=== PATIENT | male | born 1955 | race Caucasian/White ===

== ENCOUNTER → 2016-06-15 | Outpatient (CLI) | payer BC ==
[~2016-06-15] MED LIST: ASPI-435 PO; CLON0.5T3 PO; GLC/500 PO; LISI-729 PO; MELATAB2 PO; MELO7.5T5 PO; NIAC500T11 PO; SERT-234 PO; ZNTT/150 PO
[2016-06-15 09:51] LABS: ALT/SGPT 28 U/L (12-78); AST/SGOT 19 U/L (15-37); BLOOD UREA NITROGEN 19 mg/dl (7-18); BUN/CREATININE RATIO 17.4 (10-20); CALCIUM 9.1 mg/dl (8.5-10.1); CARBON DIOXIDE 26 mmol/L (21-32); CHLORIDE 106 mmol/L (98-107); GLUCOSE 148 mg/dl (70-99); POTASSIUM 4.3 mmol/L (3.5-5.1); SODIUM 141 mmol/L (136-145); TRIGLYCERIDES 106 mg/dl (0-150); VERY LOW DENSITY LIPOPROT CALC 21 mg/dl
[2016-06-15 09:55] LABS: ESTIMATED AVERAGE GLUCOSE 120 mg/dl; HA1C FLAG Normal (Normal)
[2016-06-15 09:56] LABS: ALB/GLOB RATIO 1.1 (0.9-2); ALKALINE PHOSPHATASE 65 U/L (45-117); CHOLESTEROL 201 mg/dl (0-200); CHOLESTEROL/HDL RATIO 3.1; HDL CHOLESTEROL 64 mg/dl; LDL CHOLESTEROL CALCULATED 116 mg/dl
== END | disposition home or self-care (01) ==
LOC: C.LAB1850 08:16
PROVIDERS: ATTEND Nurse Practitioner
DX: E11.9 Type 2 diabetes mellitus without complications (principal); Z12.5 Encounter for screening for malignant neoplasm of prostate

== ENCOUNTER → 2017-01-11 | Outpatient (CLI) | payer BC ==
[2017-01-11 10:12] LABS: BASO % 0.5 %; BASO ABS # 0.02 K/uL (0-0.2); COMPLETE YES; EOS % 7.3 %; HEMATOCRIT 41.8 % (42-52); IG% 0.2 %; LYMPH ABS # 1.22 K/uL (1.2-3.4); MEAN CELL VOLUME 89.1 fL (80-100); MEAN CORPUSCULAR HGB CONC 35.9 g/dl (32-36); MEAN PLATELET VOLUME 8.9 fL (7.4-10.4); PLATELET COUNT 148 K/uL (130-400); RED BLOOD COUNT 4.69 M/uL (4.7-6.1); WHITE BLOOD COUNT 4.36 K/uL (4.8-10.8)
[2017-01-11 10:28] LABS: ESTIMATED AVERAGE GLUCOSE 123 mg/dl; HA1C FLAG Normal (Normal)
== END | disposition home or self-care (01) ==
LOC: C.LAB1850 09:10
PROVIDERS: ATTEND Internal Medicine
DX: E11.9 Type 2 diabetes mellitus without complications (principal)

== ENCOUNTER → 2017-02-09 | Day surgery (SDC) | payer BC ==
[2017-01-31 11:35] VITALS: Ht 179.1 cm; Wt 81.8 kg
[~2017-02-09] VITALS: Ht 179.1 cm; Wt 81.8 kg
[~2017-02-09] MED LIST changes: +LIDOCAINE HCL 2% 2 ML VIAL (20MG/ML) ONE; +MIDAZOLAM HCL 1 MG/ML 2ML VIAL ONE; +PROPOFOL IV EMULSION 10 MG/ML 20 ML VIAL IV ONE
--- NOTE | 2017-02-09 08:53 | Endo History and Physical ---
History & Physical Date of Service: Feb 09, 2017. Chief Complaint: Screening Referring Physician: Abarca History of Present Illness 61 yo CM who presents for screening colonoscopy. Past Surgical History Hx Cardiac Surgery: No Hx Internal Defibrillator: No Hx Pacemaker: No Hx Abdominal Surgery: No Hx of Implantable Prosthesis: No Hx Post-Op Nausea and Vomiting: No Hx Cancer Surgery: No Hx Thoracic Surgery: No Hx Orthopedic: No Hx Urinary Tract Surgery: Yes (LITHOTRIPSY, VASECTOMY) Family History None Social History Smoking Status: Never Smoker Hx Substance Use: No Hx Alcohol Use: No Allergies Coded Allergies: Statins (Verified Allergy, Unknown, MUSCLE ACHES, 02/09/17) Current Medications Reported Home Medications Medications Dose Route/Sig Max Daily Dose Days Date Category Glucophage (Metformin Hcl) 500 Mg Tab 500 Mg PO BID 01/31/17 Reported Zoloft (Sertraline HCl) 100 Mg Tab 100 Mg PO BID 01/31/17 Reported Zestril (Lisinopril) 5 Mg Tab 5 Mg PO QAM 01/31/17 Reported Zantac (Ranitidine HCl) 150 Mg Tab 150 Mg PO BID 01/31/17 Reported Mobic (Meloxicam) 7.5 Mg Tab 7.5 Mg PO QAM 01/31/17 Reported Aspirin 81 (Aspirin) 81 Mg Tab 1 Tab PO QPM 01/31/17 Reported Niacin 500 Mg Tab 500 Mg PO QAM 01/31/17 Reported Melatonin Maximum Strengt (Melatonin) 5 Mg Tab 10 Mg PO HS 01/31/17 Reported Klonopin (Clonazepam) 0.5 Mg Tab 0.5 Mg PO DAILY PRN 01/31/17 Reported Vital Signs Weight (Kilograms): 81.82 Height (Feet): 5 Height (Inches): 10.5 Physical Exam General Appearance: WD/WN, no apparent distress Respiratory/Chest: Auscultation: breath sounds normal Cardiovascular: Heart Auscultation: RRR Abdomen: Bowel Sounds: normal Inspection & Palpation: soft, non-distended, no tenderness, guarding & rebound Assessment and Plan Assessment: 61 yo CM who presents for screening colonoscopy. Plan: Proceed with colonoscopy.
[2017-02-09 09:04] VITALS: TEMP 36.6
--- NOTE | 2017-02-09 10:04 | Discharge Instructions ---
Endoscopy Patient Instructions Date / Procedure(s) Performed Feb 09, 2017. Colonoscopy Allergy Information Coded Allergies: Statins (Verified Allergy, Unknown, MUSCLE ACHES, 02/09/17) Discharge Date / Findings Feb 09, 2017. Colon polyp Diverticulosis Internal hemorrhoids Medication Instructions Stopped Medication(s): Metformin last taken on 02/06/17 81mg Aspirin last taken on 02/07/17 OK to resume all medications today as prescribed Reported Home Medications Medications Dose Route/Sig Max Daily Dose Days Date Category Glucophage (Metformin Hcl) 500 Mg Tab 500 Mg PO BID 01/31/17 Reported Zoloft (Sertraline HCl) 100 Mg Tab 100 Mg PO BID 01/31/17 Reported Zestril (Lisinopril) 5 Mg Tab 5 Mg PO QAM 01/31/17 Reported Zantac (Ranitidine HCl) 150 Mg Tab 150 Mg PO BID 01/31/17 Reported Mobic (Meloxicam) 7.5 Mg Tab 7.5 Mg PO QAM 01/31/17 Reported Aspirin 81 (Aspirin) 81 Mg Tab 1 Tab PO QPM 01/31/17 Reported Niacin 500 Mg Tab 500 Mg PO QAM 01/31/17 Reported Melatonin Maximum Strengt (Melatonin) 5 Mg Tab 10 Mg PO HS 01/31/17 Reported Klonopin (Clonazepam) 0.5 Mg Tab 0.5 Mg PO DAILY PRN 01/31/17 Reported Provider Instructions Activity Restrictions - No exercising or heavy lifting for 24 hours. - Do not drink alcohol the day of the procedure. - Do not drive a car or operate machinery until the day after the procedure. - Do not make any important decisions or sign important papers in 24 hours after the procedure. Following Day: - Return to full activity which may include returning to work/school. Diet Start your diet with liquids and light foods (jello, soup, juice, toast). Then eat your usual diet if not nauseated. Treatment For Common After Affects For mild abdominal pain, bloating, or excessive gas: - Rest - Eat lightly - Lie on right side Follow-Up Information Follow-up with Rima as scheduled Anesthesia Information What You Should Know You have had a procedure that required some medicine to reduce anxiety and discomfort. This treatment is called moderate sedation. After receiving the treatment, you may be sleepy, but you will be able to breathe on your own. The effects of the treatment may last for several hours. Follow these instructions along with Activity/Diet recommendations noted above: * Do NOT do anything where dizziness or clumsiness would be dangerous. * Rest quietly at home today, then you can be up and about tomorrow. * Have a responsible person stay with you the rest of today. * You may have had an I.V. today. If so, you may take the dressing off later today. Recommendations Call your doctor if: * Trouble breathing * Continuous vomiting for more than 24 hours * Temperature above 101 degrees * Severe abdominal pain or bloating * Pain not relieved by pain medicine ordered * There is increased drainage or redness from any incision * A large amount of rectal bleeding greater than 2-3 tablespoons. (If you had a polyp/s removed or have hemorrhoids, a small amount of blood - from the rectum is to be expected.) * You have any unanswered questions or concerns. IN THE EVENT OF A SERIOUS EMERGENCY, GO TO THE NEAREST EMERGENCY ROOM Your discharge instructions were prepared by provider Ubaldo Suazo. Patient Instructions Signature Page Toby Bailey Patient (or Guardian) Signature/Date: I have read and understand the instructions given to me by my caregivers. Caregiver/RN/Doctor Signature/Date: The above-named patient and/or guardian has received patient instructions on this date. + Original Patient Signature Page (only) stays with chart. Please make copy for patient.
--- NOTE | 2017-02-09 10:06 | GI REPORT ---
Procedure Date: 02/09/2017 9:27 AM Procedure: Colonoscopy Indications: Screening for colorectal malignant neoplasm Medicines: Monitored Anesthesia Care Complications: No immediate complications. Estimated Blood Loss: Estimated blood loss: none. Procedure: Pre-Anesthesia Assessment: - Prior to the procedure, a History and Physical was performed, and patient medications and allergies were reviewed. The patient's tolerance of previous anesthesia was also reviewed. The risks and benefits of the procedure and the sedation options and risks were discussed with the patient. All questions were answered, and informed consent was obtained. Prior Anticoagulants: The patient has taken aspirin, last dose was 2 days prior to procedure. ASA Grade Assessment: II - A patient with mild systemic disease. After reviewing the risks and benefits, the patient was deemed in satisfactory condition to undergo the procedure. After I obtained informed consent, the scope was passed under direct vision. Throughout the procedure, the patient's blood pressure, pulse, and oxygen saturations were monitored continuously. The On-site loaner was introduced through the anus and advanced to the terminal ileum. The colonoscopy was performed without difficulty. The patient tolerated the procedure well. The quality of the bowel preparation was good. The terminal ileum, ileocecal valve, appendiceal orifice, and rectum were photographed. Findings: A 5 mm polyp was found in the ascending colon. The polyp was sessile. The polyp was removed with a hot snare. Resection and retrieval were complete. Multiple small-mouthed diverticula were found in the sigmoid colon. Non-bleeding internal hemorrhoids were found during retroflexion. The hemorrhoids were small. Impression: - One 5 mm polyp in the ascending colon, removed with a hot snare. Resected and retrieved. - Diverticulosis in the sigmoid colon. - Non-bleeding internal hemorrhoids. Recommendation: - Resume previous diet. - Continue present medications. - Repeat colonoscopy for surveillance based on pathology results. - Return to primary care physician as previously scheduled. Ubaldo Suazo DO 02/09/2017 10:06:19 AM This report has been signed electronically. Note Initiated On: 02/09/2017 9:27 AM I attest to the content of the Intraoperative Record and orders documented therein, exceptions below
--- NOTE | 2017-02-09 10:23 | Anesthesiology Progress Note ---
Anesthesia Post Op Note Date & Time Feb 09, 2017 at 10:23 Vital Signs Pain Intensity: 0 Vital Signs Past 12 Hours Date Time Temp Pulse Resp B/P (MAP) Pulse Ox O2 Delivery O2 Flow Rate FiO2 02/09/17 10:19 67 16 114/82 (93) 96 Room Air 02/09/17 10:04 67 12 104/70 (81) 96 Room Air 02/09/17 09:04 36.6 71 20 132/83 (99) 95 Room Air Notes Mental Status: alert / awake / arousable, participated in evaluation Pt Amnestic to Procedure: Yes Nausea / Vomiting: adequately controlled Pain: adequately controlled Airway Patency, RR, SpO2: stable & adequate BP & HR: stable & adequate Hydration State: stable & adequate Anesthetic Complications: no major complications apparent
[2017-02-09 10:34] VITALS: BP 124/81; PULSE 60; O2SAT 97
== END | disposition home or self-care (01) ==
LOC: C.GI 08:21
PROVIDERS: ATTEND Internal Medicine
DX: Z12.11 Encounter for screening for malignant neoplasm of colon (principal); D12.2 Benign neoplasm of ascending colon; K57.30 Diverticulosis of large intestine without perforation or abscess without bleeding; K64.8 Other hemorrhoids; Z79.82 Long term (current) use of aspirin; Z79.84 Long term (current) use of oral hypoglycemic drugs; Z79.899 Other long term (current) drug therapy

== ENCOUNTER → 2017-08-16 | Outpatient (CLI) | payer OTHER ==
[~2017-08-16] MED LIST changes: -LIDOCAINE HCL 2% 2 ML VIAL (20MG/ML) ONE; -MIDAZOLAM HCL 1 MG/ML 2ML VIAL ONE; -PROPOFOL IV EMULSION 10 MG/ML 20 ML VIAL IV ONE; +RANI150T85 PO; -ZNTT/150 PO
--- NOTE | 2017-08-16 10:29 | DIAGNOSTIC IMAGING REPORT ---
THYROID ULTRASOUND HISTORY: E07.9 Thyroid [id number] COMPARISON: Thyroid ultrasound 01/09/2013. FINDINGS: Right lobe: 4.7 x 0.9 x 1.7 cm. Stable 4 mm hypoechoic nodule/cyst. Left lobe: 4.3 x 1.4 x 1.6 cm. Stable 7 mm hypoechoic nodule/cyst. Isthmus: 3 mm in thickness. No nodules. IMPRESSION: Stable tiny bilateral thyroid nodules. These do not meet sonographic criteria for biopsy. Electronically signed by: Felix Quach M.D. 08/16/2017 10:28 AM Dictated Date/Time: 08/16/2017 10:27 AM
== END | disposition home or self-care (01) ==
LOC: C.ULTR 09:58
PROVIDERS: ATTEND Physician Assistant Medical
DX: E07.9 Disorder of thyroid, unspecified (principal)

== ENCOUNTER 2024-02-26 11:33 | Inpatient (IN) ==
[2024-02-26 11:50] VITALS: RESP 18
[2024-02-26 12:10] LABS: Basophils # (auto) 0.02 K/uL (0.00-0.20); Basophils % (auto) 0.4 %; Eosinophils # (auto) 0.13 K/uL (0.00-0.50); Eosinophils % (auto) 2.6 %; Hematocrit (blood only) 41.9 % (42.0-52.0); Hemoglobin 14.4 g/dl (14.0-18.0); Immature Granulocytes # (auto) 0.02 K/uL (0.01-0.20); Immature Granulocytes % (auto) 0.4 %; Lymphocytes # (auto) 1.34 K/uL (1.20-3.40); Lymphocytes % (auto) 26.5 %; Mean Corpuscular Hemoglobin 30.8 pg (25.0-34.0); Mean Corpuscular Hgb Conc 34.4 g/dL (32.0-36.0); Mean Corpuscular Volume 89.5 fL (80.0-100.0); Mean Platelet Volume 9.3 fL (9.4-12.4); Monocytes # (auto) 0.37 K/uL (0.11-0.59); Monocytes % (auto) 7.3 %; Neutrophils # (auto) 3.17 K/uL (1.40-6.50); Neutrophils % (auto) 62.8 %; Platelet Count 144 K/uL (130-400); RDW Coefficient of Variation 13.6 % (11.5-14.5); Red Blood Count 4.68 M/uL (4.70-6.10); White Blood Count 5.05 K/ul (4.8-10.8)
[2024-02-26] MEDS: OPTIRAY 320 125ml IV ONE (12:12)
[2024-02-26 12:17] LABS: iSTAT Creatinine 0.9 mg/dl (0.6-1.3); iSTAT Hemoglobin 13.9 g/dl (14.0-18.0); iSTAT Ionized Calcium 1.29 mmol/l (1.12-1.32); iSTAT Potassium 4.3 mmol/L (3.3-5.0)
--- NOTE | 2024-02-26 12:19 | Electrocardiogram Report ---
Test Reason : Blood Pressure : */* mmHG Vent. Rate : 65 BPM Atrial Rate : 65 BPM P-R Int : 192 ms QRS Dur : 104 ms QT Int : 408 ms P-R-T Axes : 44 76 61 degrees QTcB Int : 424 ms Normal sinus rhythm Normal ECG Confirmed by Marcio Chinchilla ([id number]) on 02/26/2024 12:18:51 PM Referred By: Confirmed By: Marcio Chinchilla
[2024-02-26 12:21] LABS: Alanine Aminotransferase 15 U/L (7-52); Albumin Globulin Ratio 1.5 (0.9-2); Albumin Level 4.3 gm/dl (3.4-5.0); Alkaline Phosphatase 56 U/L (34-104); Anion Gap 8 (3-11); Aspartate Aminotransferase 16 U/L (13-39); BUN Creatinine Ratio 18.6 (10-20); Bilirubin,Total 0.6 mg/dl (0.2-1.0); Blood Urea Nitrogen 16 mg/dl (6-23); Calcium 9.6 mg/dl (8.6-10.3); Carbon Dioxide 26 mmol/L (21-32); Chloride 104 mmol/L (98-107); Creatinine Clr Calc Pharmacy 86.3 ml/min; Globulin 2.8 gm/dl (2.5-4.0); Glucose 176 mg/dl (70-99(Fasting)); Magnesium 1.6 mg/dl (1.7-2.4); Potassium 4.3 mmol/L (3.5-5.1); Sodium 138 mmol/L (136-145); Total Protein 7.1 gm/dl (6.0-8.3)
[2024-02-26 12:26] LABS: Troponin I High Sensitivity < 2.3 pg/ml (0-20)
--- NOTE | 2024-02-26 12:35 | CT Scan Report ---
UNENHANCED CT OF THE BRAIN; CT ANGIOGRAM OF THE BRAIN; CT ANGIOGRAM OF THE NECK CLINICAL HISTORY: Neurological deficit. Stroke like symptoms. COMPARISON STUDY: MRI of the brain dated 03/21/2011. CT of the brain dated 11/16/2023. TECHNIQUE: Unenhanced axial CT scan of the brain is performed. Subsequently, following the IV adminis tration of 112 of [address] 320, CT angiogram of the head and neck was performed from the aortic arch t o the vertex. Images are reviewed in the axial, sagittal, and coronal planes. 3-D MIPS images are cre ated and assessed. IV contrast was administered without complication. All measurements were calculate d based on NASCET criteria. A dose lowering technique was utilized adhering to the principles of ALA RA. CT DOSE: 1013.62 mGy.cm FINDINGS: Brain parenchyma: There is age related involutional change noting mild subcortical and periventricula r microangiopathic disease. There is no hemorrhage, mass effect, or evidence of acute territorial isc hemia by CT criteria. There is no evidence of enhancing mass lesion on the angiogram phase images. Th e ventricles, sulci, and cisterns are prominent secondary to involutional change. There is a small ch ronic lacunar infarct in the left thalamus. Lafleur-white matter differentiation is preserved. No extra- axial fluid collection is seen. Thoracic aorta: Visualized portions of the thoracic aorta are normal in caliber. The aortic arch demo nstrates standard 3-vessel anatomy. Right carotid arterial system: The right common carotid artery is widely patent, as are the right int ernal and external carotid arteries. Left carotid arterial system: The left common carotid artery is widely patent, as are the left international relations teacher al and external carotid arteries. Vertebral arteries: Widely patent bilaterally and codominant. Subclavian arteries: Widely patent bilaterally. Intracranial vasculature: There is atherosclerotic calcification of the cavernous carotid and vertebr al arteries. The internal carotid arteries are patent at the skull base, as are the anterior and midd le cerebral arteries bilaterally. The vertebrobasilar system and posterior cerebral arteries are wide ly patent. The vertebral arteries are codominant.. There is no aneurysm, high-grade stenosis, or foca l vessel cut off seen throughout the intracranial circulation. Jugular veins: Patent bilaterally. Dural sinuses: Patent. Lung apices: Partially visualized upper lobe lung parenchyma appears clear. Soft tissues: The visualized pharyngeal soft tissues are normal in appearance noting angiographic pha se technique. The oropharyngeal airway appears widely patent. The salivary and thyroid glands are nor mal in appearance. No cervical lymphadenopathy is seen. Skeletal structures: The skeletal structures are osteopenic. The calvarium appears intact. The cervic al spine is maintained noting mild multilevel spondylosis. Orbits: The bony orbits are intact. Orbital contents are normal as visualized noting bilateral ocular lens implants. Sinuses and mastoids: There is evidence of previous paranasal sinus surgery. There is mild mucosal th ickening within the right frontal sinus and ethmoid sinuses. The remaining paranasal sinuses are kenroy r. The mastoid air cells are well pneumatized. IMPRESSION: 1. There is no hemorrhage, mass effect, or evidence of acute territorial ischemia by CT criteria. 2. Unremarkable CT angiogram of the brain. 3. Unremarkable CT angiogram of the neck. ACT 112: Negative or not required by law. Electronically signed by: Ifeanyi Villalpando M.D. 02/26/2024 12:33 PM
[2024-02-26 12:43] LABS: Partial Thromboplastin Ratio 0.8; Partial Thromboplastin Time 22 Seconds (21-31); Prothrombin Time 10.4 Seconds (9.0-12.0)
--- NOTE | 2024-02-26 12:50 | XRay Report ---
SINGLE VIEW CHEST CLINICAL HISTORY: Neurological deficit. Stroke like symptoms. FINDINGS: An AP, portable, upright chest radiograph is compared to chest x-ray and chest CT dated 07/31. The heart is mildly enlarged. The pulmonary vasculature is noncongested. Chronic interstitial thickening similar to previous. There is mild bibasilar scarring/atelectasis. The lungs and pleural spaces are otherwise clear. No pneumothorax is seen. The skeletal structures are osteopenic. The bony thorax is grossly intact. IMPRESSION: No active disease in the chest. ACT 112: Negative or not required by law. Electronically signed by: Ifeanyi Villalpando M.D. 02/26/2024 12:48 PM
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
--- NOTE | 2024-02-26 14:53 | Magnetic Resonance Report ---
MRI OF THE BRAIN WITHOUT CONTRAST CLINICAL HISTORY: Slurred speech. Near syncope. Evaluate for cerebrovascular accident. COMPARISON STUDY: MRI of the brain March 29, 2021. Head CT and CTA head performed earlier today. TECHNIQUE: Utilizing a 1.5 [place] magnet and dedicated coil, multiplanar, multiecho imaging of the bra in was performed without IV contrast. FINDINGS: There are no foci of restricted diffusion to suggest acute infarct. No acute intracranial h emorrhage, midline shift or mass effect is present. Mild ventricular dilatation is due to central atr ophy. Basal cisterns are patent. There are no extra-axial collections. Flow-voids for the major intra cranial vessels are present. White matter T2 hyperintense foci have mildly progressed since MRI of No [id number] and suggest small vessel disease. No intracranial masses are identified on unenhanced exam. Calvarial signal is unremarkable. There is mild sinus mucosal thickening. IMPRESSION: No acute intracranial findings. ACT 112: Negative or not required by law. Electronically signed by: Matthew Cuba M.D. 02/26/2024 2:50 PM
--- NOTE | 2024-02-26 15:11 | Emergency Department Note ---
History of Present Illness General Chief complaint: Syncope (Near Syncope) Stated complaint: TIA SX Time Seen by Provider: 02/26/24 11:50 History of Present Illness Provider complaint: Syncope slurred speech Maximum Pain Intensity: 0 68-year-old male presents to the emergency department for syncope and slurred speech. Patient reports proxy 1 hour ago he was moving rocks and suddenly developed slurred speech and passed out. He reports his symptoms have since resolved. He reports no head trauma. No headache, no neck pain, no fevers, no chest pain, no difficulty breathing, no nausea vomiting or diarrhea. No melena hematochezia. No blood thinners. Home Medications Medication Instructions Recorded Confirmed Type mecobalamin (vitamin B12) 1,000 1,000 mcg PO DAILY #30 tabs 09/15/20 02/26/24 Rx mcg chewable tablet blood-glucose meter (OneTouch 09/23/21 08/29/23 History Verio Meter) atorvastatin 80 mg tablet 80 mg PO DAILY #90 tabs 06/20/23 02/26/24 Rx dutasteride 0.5 mg capsule 0.5 mg PO DAILY #90 caps 08/12/23 02/26/24 Rx (Avodart) metformin 1,000 mg tablet 1,000 mg PO BID #180 tabs 08/12/23 02/26/24 Rx tamsulosin 0.4 mg capsule 0.4 mg PO QPM #90 caps 08/12/23 02/26/24 Rx acetaminophen 500 mg tablet 1,000 mg PO Q8H PRN Pain 08/26/23 02/26/24 History lisinopril 10 mg tablet 10 mg PO DAILY #90 tabs 08/26/23 02/26/24 Rx sertraline 100 mg tablet 100 mg PO BID #180 tabs 08/26/23 02/26/24 Rx clopidogrel 75 mg tablet 75 mg PO DAILY #90 tabs 09/30/23 02/26/24 Rx lidocaine 4 % topical patch 1 patch topical DAILY PRN pain #5 01/11/24 02/26/24 Rx ea Allergies Allergy/AdvReac Type Severity Reaction Status Date / Time Wfqrslj-[id number]-MuO Reductase Allergy Unknown MUSCLE Verified 01/11/24 09:45 Inhibitor ACHES [Klehmvu-Dzy-Gqb Reductase Inhibitor] Past Med/Surg History Problem List (Updated 02/26/24 @ 15:11 by Irvin Mckeon MD) Stroke-like symptoms (Acute) Syncope (Acute) TIA (transient ischemic attack) Ascending aorta dilatation Foraminal stenosis of lumbar region Disc degeneration, lumbosacral Low back pain radiating to left leg Idiopathic polyneuropathy Lumbosacral radiculopathy Depression Type II diabetes mellitus Diverticulosis GERD (gastroesophageal reflux disease) Generalized osteoarthritis Hyperlipidemia Hypertension Leukopenia Thyroid nodule Night terrors BPH w urinary obs/LUTS Insomnia (Acute) Erectile dysfunction Complex sleep apnea syndrome History of right MCA stroke Punctate right temporal area CVA June 2022 Neurologic gait dysfunction Left leg weakness Medical History Nephrolithiasis Syncope Condyloma acuminata Surgical History History of lithotripsy History of cataract surgery Hx of endoscopic sinus surgery H/O vasectomy H/O nasal septoplasty Family History Mother Pancreatic neoplasm Diabetes Hearing loss Cancer Father Stroke Hypertension Dementia Unknown Vascular disorder Uncle Diabetes Aunt Diabetes Grandfather (Paternal) Prostate cancer Sister Hypertension Sister No problems noted. Brother No problems noted. Other Cerebral aneurysm Denies family history of Ovarian cancer No family history of adverse response to anesthesia No family history of bleeding disorder Heart disease Allergies Myocardial infarction Breast cancer Colorectal cancer Asthma Social History Smoking Status: Never smoker Second Hand Exposure: No; Do You Dip or Chew Tobacco: No; Hx Alcohol Use: Yes Alcohol Intake Frequency: Monthly or Less Hx Substance Use: No Preferred Language: Japanese Communication Ability: Effective Visual Impairment: No Limitations Hearing Ability: Use of Hearing Aid Beliefs That Will Affect Care: None marital status: Current Living Situation: Spouse current occupational status: retired 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 Feels Safe at Home: Yes Childhood Exposure to Second-Hand Smoke: No Diet: regular caffeine: Yes Dental Care, Regularly: No Physical Activity Frequency: Other Seatbelt Use: always Sunscreen Use: No Assistive Devices: Glasses and Hearing Aid - Bilateral Physical Exam Vital Signs Vital Signs - 24 hr 02/26/24 11:42 02/26/24 11:50 10/27/24 13:50 Temperature 36.5 C Temperature Source Oral Pulse Rate 67 Pulse Rate [Finger] 68 62 Pulse Rhythm Regular Pulse Rhythm [Finger] Regular Regular Pulse Strength Normal Pulse Strength [Finger] Normal Normal Respiratory Rate 18 18 18 Respiratory Effort / Characteristics Non-Labored Spontaneous Non-Labored Spontaneous Non-Labored Spontaneous Respiratory Depth Normal Normal Normal Blood Pressure 120/78 Blood Pressure [Left Arm] 120/78 127/68 Blood Pressure Mean 92 Blood Pressure Mean [Left Arm] 92 87 Blood Pressure Position Sitting Blood Pressure Position [Left Arm] Sitting Lying Pulse Oximetry 94 93 98 Oxygen Delivery Method Room Air Room Air Room Air Sepsis Recent Fever Within 48 Hours No Sepsis New/Unexplained Change in Mental Status Yes Sepsis Action Taken by Nursing No Action Required Physical Exam HENT: Exam performed. - Head: Normocephalic and atraumatic. - Right Ear: External ear normal. No mastoid erythema - Left Ear: External ear normal. No mastoid erythema - Mouth/Throat: The oropharynx is clear and moist. No trismus in the jaw. No dental abscesses or uvula swelling. No oropharyngeal exudate or tonsillar abscesses. EYES: Conjunctivae and EOM are normal. Pupils are equal, round, and reactive to light. Right eye exhibits no discharge. Left eye exhibits no discharge. No scleral icterus. NECK: Normal range of motion. Neck supple. No JVD present. No spinous process tenderness present. No carotid bruit present. No rigidity. No tracheal deviation and normal range of motion present. No Brudzinski's sign and no Kernig's sign noted. CV: Normal rate, regular rhythm, normal heart sounds and intact distal pulses. There is no peripheral edema. Palpable radial pulses bue. PULM/CHEST: Effort normal and breath sounds normal. No respiratory distress. No stridor. He has no wheezes. He has no rales. - Chest Wall: He exhibits no tenderness. ABD: The abdomen is soft. He has no distension. No mass is present. There is no tenderness. There is no rebound, no guarding, no Riggins's sign and no tenderness at McBurney's point. Rovsig negative. MUSC/SKEL: Normal range of motion. There is no peripheral edema, tenderness or deformity. LYMPH: No cervical adenopathy. NEURO: He is alert and oriented to person, place, and time. He has normal strength. No cranial nerve deficit or sensory deficit. Coordination and gait normal. GCS eye subscore is 4. GCS verbal subscore is 5. GCS motor subscore is 6. Cerebellar tests wnl. No clonus bilaterally. NIHSS: 0 SKIN: Skin is warm and dry. He is not diaphoretic. PSYCH: He has a normal mood and affect. Behavior is normal. Judgment and thought content normal. Course Course 1150: The patient was evaluated in room B9. A complete history and physical exam was performed Cardiac monitoring: An order was placed for continuous cardiac monitoring. The monitor shows a rate of 60 with sinus rhythm interpreted by sd 1252: Vital signs stable. Labs and imaging unremarkable. On reassessment NIHSS 0. Patient will be admitted for TIA/syncope. Administered Medications Discontinued Medications Ioversol (Optiray 320 125ml) 112 ml IV ONCE ONE Stop: 02/26/24 12:13 Last Admin: 02/26/24 12:12 Dose: 112 ml Documented By: ARTURO Medical Decision Making Laboratory Data Attestation: I reviewed the patient's lab results. 02/26/24 11:41 02/26/24 11:41 Lab Results 02/26/24 02/26/24 02/26/24 Range/Units 11:41 12:00 12:31 WBC 5.05 (4.8-10.8) K/ul RBC 4.68 L (4.70-6.10) M/uL Hgb 14.4 (14.0-18.0) g/dl POC Hgb 13.9 L (14.0-18.0) g/dl Hct 41.9 L (42.0-52.0) % POC Hct 41 L (42-52) % MCV 89.5 (80.0-100.0) fL MCH 30.8 (25.0-34.0) pg MCHC 34.4 (32.0-36.0) g/dL RDW Std Deviation 44.0 (36.4-46.3) fL RDW Coeff of Soledad 13.6 (11.5-14.5) % Plt Count 144 (130-400) K/uL MPV 9.3 L (9.4-12.4) fL Immature Gran % (Auto) 0.4 % Neut % (Auto) 62.8 % Lymph % (Auto) 26.5 % Trinity % (Auto) 7.3 % Eos % (Auto) 2.6 % Baso % (Auto) 0.4 % Neut # (Auto) 3.17 (1.40-6.50) K/uL Lymph # (Auto) 1.34 (1.20-3.40) K/uL Trinity # (Auto) 0.37 (0.11-0.59) K/uL Eos # (Auto) 0.13 (0.00-0.50) K/uL Baso # (Auto) 0.02 (0.00-0.20) K/uL Immature Gran # (Auto) 0.02 (0.01-0.20) K/uL PT 10.4 (9.0-12.0) Seconds INR 1.0 (0.9-1.1) APTT 22 (21-31) Seconds PTT Ratio 0.8 POC Sodium 138 (135-144) mmol/L Sodium 138 (136-145) mmol/L POC Potassium 4.3 (3.3-5.0) mmol/L Potassium 4.3 (3.5-5.1) mmol/L POC Chloride 102 (101-112) mmol/L Chloride 104 (98-107) mmol/L Carbon Dioxide 26 (21-32) mmol/L POC Total CO2 24 (24-31) mmol/L Anion Gap 8 (3-11) POC Anion Gap 18.0 (16-25) mmol/L POC BUN 16 (7-18) mg/dl BUN 16 (6-23) mg/dl Creatinine 0.86 (0.6-1.4) mg/dl POC Creatinine 0.9 (0.6-1.3) mg/dl Est Cr Clr Drug Dosing 86.3 ml/min eGFR 93.73 BUN/Creatinine Ratio 18.6 (10-20) Glucose 176 H (70-99(Fasting)) mg/dl POC Glucose 175 H (70-99) mg/dl POC Glucose (other) 177 H (70-99) mg/dl Calcium 9.6 (8.6-10.3) mg/dl POC Ioniz Calcium Oliver 1.29 (1.12-1.32) mmol/l Magnesium 1.6 L (1.7-2.4) mg/dl Total Bilirubin 0.6 (0.2-1.0) mg/dl AST 16 (13-39) U/L ALT 15 (7-52) U/L Alkaline Phosphatase 56 (34-104) U/L Troponin I High Sens < 2.3 (0-20) pg/ml Total Protein 7.1 (6.0-8.3) gm/dl Albumin 4.3 (3.4-5.0) gm/dl Globulin 2.8 (2.5-4.0) gm/dl Albumin/Globulin Ratio 1.5 (0.9-2) Blood Type O Positive Antibody Screen NEGATIVE Imaging Data Attestation: I personally reviewed and interpreted this imaging study as follows: My Impression: Chest x-ray negative. Airway clear. No pneumothorax. No consolidation. No cardiomegaly or cephalization.. No free air under the diaphragm. No fractures of the skeletal structures. Radiologist's Impression: Chest X-Ray 02/26/24 11:57 SINGLE VIEW CHEST CLINICAL HISTORY: Neurological deficit. Stroke like symptoms. FINDINGS: An AP, portable, upright chest radiograph is compared to chest x-ray and chest CT dated 08/18/2023. The heart is mildly enlarged. The pulmonary vasculature is noncongested. Chronic interstitial thickening similar to previous. There is mild bibasilar scarring/atelectasis. The lungs and pleural spaces are otherwise clear. No pneumothorax is seen. The skeletal structures are osteopenic. The bony thorax is grossly intact. IMPRESSION: No active disease in the chest. ACT 112: Negative or not required by law. Electronically signed by: Ifeanyi Villalpando M.D. 02/26/2024 12:[address] 02/26/24 11:[address] OF THE BRAIN; CT ANGIOGRAM OF THE BRAIN; CT ANGIOGRAM OF THE NECK CLINICAL HISTORY: Neurological deficit. Stroke like symptoms. COMPARISON STUDY: MRI of the brain dated 03/21/2011. CT of the brain dated 11/16/2023. TECHNIQUE: Unenhanced axial CT scan of the brain is performed. Subsequently, following the IV administration of 112 of Optiray 320, CT angiogram of the head and neck was performed from the aortic arch to the vertex. Images are reviewed in the axial, sagittal, and coronal planes. 3-D MIPS images are created and assessed. IV contrast was administered without complication. All measurements were calculated based on NASCET criteria. A dose lowering technique was utilized adhering to the principles of ALARA. CT DOSE: 1013.62 mGy.cm FINDINGS: Brain parenchyma: There is age related involutional change noting mild subcortical and periventricular microangiopathic disease. There is no hemorrhage, mass effect, or evidence of acute territorial ischemia by CT criteria. There is no evidence of enhancing mass lesion on the angiogram phase images. The ventricles, sulci, and cisterns are prominent secondary to involutional change. There is a small chronic lacunar infarct in the left thalamus. Lafleur-white matter differentiation is preserved. No extra-axial fluid collection is seen. Thoracic aorta: Visualized portions of the thoracic aorta are normal in caliber. The aortic arch demonstrates standard 3-vessel anatomy. Right carotid arterial system: The right common carotid artery is widely patent, as are the right internal and external carotid arteries. Left carotid arterial system: The left common carotid artery is widely patent, as are the left internal and external carotid arteries. Vertebral arteries: Widely patent bilaterally and codominant. Subclavian arteries: Widely patent bilaterally. Intracranial vasculature: There is atherosclerotic calcification of the cavernous carotid and vertebral arteries. The internal carotid arteries are patent at the skull base, as are the anterior and middle cerebral arteries bilaterally. The vertebrobasilar system and posterior cerebral arteries are widely patent. The vertebral arteries are codominant.. There is no aneurysm, high-grade stenosis, or focal vessel cut off seen throughout the intracranial circulation. Jugular veins: Patent bilaterally. Dural sinuses: Patent. Lung apices: Partially visualized upper lobe lung parenchyma appears clear. Soft tissues: The visualized pharyngeal soft tissues are normal in appearance noting angiographic phase technique. The oropharyngeal airway appears widely patent. The salivary and thyroid glands are normal in appearance. No cervical lymphadenopathy is seen. Skeletal structures: The skeletal structures are osteopenic. The calvarium appears intact. The cervical spine is maintained noting mild multilevel spondylosis. Orbits: The bony orbits are intact. Orbital contents are normal as visualized noting bilateral ocular lens implants. Sinuses and mastoids: There is evidence of previous paranasal sinus surgery. There is mild mucosal thickening within the right frontal sinus and ethmoid sinuses. The remaining paranasal sinuses are clear. The mastoid air cells are well pneumatized. IMPRESSION: 1. There is no hemorrhage, mass effect, or evidence of acute territorial ischemia by CT criteria. 2. Unremarkable CT angiogram of the brain. 3. Unremarkable CT angiogram of the neck. ACT 112: Negative or not required by law. Electronically signed by: Ifeanyi Villalpando M.D. 02/26/2024 12:33 PM Head CTA 02/26/24 11:[address] OF THE BRAIN; CT ANGIOGRAM OF THE BRAIN; CT ANGIOGRAM OF THE NECK CLINICAL HISTORY: Neurological deficit. Stroke like symptoms. COMPARISON STUDY: MRI of the brain dated 03/21/2011. CT of the brain dated 11/16/2023. TECHNIQUE: Unenhanced axial CT scan of the brain is performed. Subsequently, following the IV administration of 112 of Optiray 320, CT angiogram of the head and neck was performed from the aortic arch to the vertex. Images are reviewed in the axial, sagittal, and coronal planes. 3-D MIPS images are created and assessed. IV contrast was administered without complication. All measurements were calculated based on NASCET criteria. A dose lowering technique was utilized adhering to the principles of ALARA. CT DOSE: 1013.62 mGy.cm FINDINGS: Brain parenchyma: There is age related involutional change noting mild subcortical and periventricular microangiopathic disease. There is no hemorrhage, mass effect, or evidence of acute territorial ischemia by CT criteria. There is no evidence of enhancing mass lesion on the angiogram phase images. The ventricles, sulci, and cisterns are prominent secondary to involutional change. There is a small chronic lacunar infarct in the left thalamus. Lafleur-white matter differentiation is preserved. No extra-axial fluid collection is seen. Thoracic aorta: Visualized portions of the thoracic aorta are normal in caliber. The aortic arch demonstrates standard 3-vessel anatomy. Right carotid arterial system: The right common carotid artery is widely patent, as are the right internal and external carotid arteries. Left carotid arterial system: The left common carotid artery is widely patent, as are the left internal and external carotid arteries. Vertebral arteries: Widely patent bilaterally and codominant. Subclavian arteries: Widely patent bilaterally. Intracranial vasculature: There is atherosclerotic calcification of the cavernous carotid and vertebral arteries. The internal carotid arteries are patent at the skull base, as are the anterior and middle cerebral arteries bilaterally. The vertebrobasilar system and posterior cerebral arteries are widely patent. The vertebral arteries are codominant.. There is no aneurysm, high-grade stenosis, or focal vessel cut off seen throughout the intracranial circulation. Jugular veins: Patent bilaterally. Dural sinuses: Patent. Lung apices: Partially visualized upper lobe lung parenchyma appears clear. Soft tissues: The visualized pharyngeal soft tissues are normal in appearance noting angiographic phase technique. The oropharyngeal airway appears widely patent. The salivary and thyroid glands are normal in appearance. No cervical lymphadenopathy is seen. Skeletal structures: The skeletal structures are osteopenic. The calvarium appears intact. The cervical spine is maintained noting mild multilevel spondylosis. Orbits: The bony orbits are intact. Orbital contents are normal as visualized noting bilateral ocular lens implants. Sinuses and mastoids: There is evidence of previous paranasal sinus surgery. There is mild mucosal thickening within the right frontal sinus and ethmoid sinuses. The remaining paranasal sinuses are clear. The mastoid air cells are well pneumatized. IMPRESSION: 1. There is no hemorrhage, mass effect, or evidence of acute territorial ischemia by CT criteria. 2. Unremarkable CT angiogram of the brain. 3. Unremarkable CT angiogram of the neck. ACT 112: Negative or not required by law. Electronically signed by: Ifeanyi Villalpando M.D. 02/26/2024 12:33 PM Neck CTA 02/26/24 11:[address] OF THE BRAIN; CT ANGIOGRAM OF THE BRAIN; CT ANGIOGRAM OF THE NECK CLINICAL HISTORY: Neurological deficit. Stroke like symptoms. COMPARISON STUDY: MRI of the brain dated 03/21/2011. CT of the brain dated 11/16/2023. TECHNIQUE: Unenhanced axial CT scan of the brain is performed. Subsequently, following the IV administration of 112 of Optiray 320, CT angiogram of the head and neck was performed from the aortic arch to the vertex. Images are reviewed in the axial, sagittal, and coronal planes. 3-D MIPS images are created and assessed. IV contrast was administered without complication. All measurements were calculated based on NASCET criteria. A dose lowering technique was utilized adhering to the principles of ALARA. CT DOSE: 1013.62 mGy.cm FINDINGS: Brain parenchyma: There is age related involutional change noting mild subcortical and periventricular microangiopathic disease. There is no hemorrhage, mass effect, or evidence of acute territorial ischemia by CT criteria. There is no evidence of enhancing mass lesion on the angiogram phase images. The ventricles, sulci, and cisterns are prominent secondary to involutional change. There is a small chronic lacunar infarct in the left thalamus. Lafleur-white matter differentiation is preserved. No extra-axial fluid collection is seen. Thoracic aorta: Visualized portions of the thoracic aorta are normal in caliber. The aortic arch demonstrates standard 3-vessel anatomy. Right carotid arterial system: The right common carotid artery is widely patent, as are the right internal and external carotid arteries. Left carotid arterial system: The left common carotid artery is widely patent, as are the left internal and external carotid arteries. Vertebral arteries: Widely patent bilaterally and codominant. Subclavian arteries: Widely patent bilaterally. Intracranial vasculature: There is atherosclerotic calcification of the cavernous carotid and vertebral arteries. The internal carotid arteries are patent at the skull base, as are the anterior and middle cerebral arteries bilaterally. The vertebrobasilar system and posterior cerebral arteries are widely patent. The vertebral arteries are codominant.. There is no aneurysm, high-grade stenosis, or focal vessel cut off seen throughout the intracranial circulation. Jugular veins: Patent bilaterally. Dural sinuses: Patent. Lung apices: Partially visualized upper lobe lung parenchyma appears clear. Soft tissues: The visualized pharyngeal soft tissues are normal in appearance noting angiographic phase technique. The oropharyngeal airway appears widely patent. The salivary and thyroid glands are normal in appearance. No cervical lymphadenopathy is seen. Skeletal structures: The skeletal structures are osteopenic. The calvarium appears intact. The cervical spine is maintained noting mild multilevel spondylosis. Orbits: The bony orbits are intact. Orbital contents are normal as visualized noting bilateral ocular lens implants. Sinuses and mastoids: There is evidence of previous paranasal sinus surgery. There is mild mucosal thickening within the right frontal sinus and ethmoid sinuses. The remaining paranasal sinuses are clear. The mastoid air cells are well pneumatized. IMPRESSION: 1. There is no hemorrhage, mass effect, or evidence of acute territorial ischemia by CT criteria. 2. Unremarkable CT angiogram of the brain. 3. Unremarkable CT angiogram of the neck. ACT 112: Negative or not required by law. Electronically signed by: Ifeanyi Villalpando M.D. 02/26/2024 12:33 PM Brain MRI 02/26/24 13:35 MRI OF THE BRAIN WITHOUT CONTRAST CLINICAL HISTORY: Slurred speech. Near syncope. Evaluate for cerebrovascular accident. COMPARISON STUDY: MRI of the brain March 29, 2021. Head CT and CTA head performed earlier today. TECHNIQUE: Utilizing a 1.5 Rica magnet and dedicated coil, multiplanar, multiecho imaging of the brain was performed without IV contrast. FINDINGS: There are no foci of restricted diffusion to suggest acute infarct. No acute intracranial hemorrhage, midline shift or mass effect is present. Mild ventricular dilatation is due to central atrophy. Basal cisterns are patent. There are no extra-axial collections. Flow-voids for the major intracranial vessels are present. White matter T2 hyperintense foci have mildly progressed since MRI of March 29, 2011 and suggest small vessel disease. No intracranial masses are identified on unenhanced exam. Calvarial signal is unremarkable. There is mild sinus mucosal thickening. IMPRESSION: No acute intracranial findings. ACT 112: Negative or not required by law. Electronically signed by: Matthew Cuba M.D. 02/26/2024 2:50 PM ECG Data Attestation: I personally reviewed and interpreted this ECG as follows: Rate (beats per minute): 65 Rhythm: + normal sinus ECG Intervals/blocks: + Normal QRS, + Normal IL and + Normal QT-c ECG ST segments: + Normal ST segments [facility] Narrative 1150: The patient was evaluated in room B9. A complete history and physical exam was performed Cardiac monitoring: An order was placed for continuous cardiac monitoring. The monitor shows a rate of 60 with sinus rhythm interpreted by sd 1252: Vital signs stable. Labs and imaging unremarkable. On reassessment NIHSS 0. Patient will be admitted for TIA/syncope. Impression & Plan Syncope, Stroke-like symptoms Discharge Plan Visit Data Chief Complaint: Syncope (Near Syncope) Stated Complaint: TIA SX ED Provider: Irvin Mckeon Discharge Problem: Syncope, Stroke-like symptoms Patient Disposition: Admitted As Inpatient Forms Stand Alone Forms: My [facility] Prescriptions Prescriptions: No Action atorvastatin 80 mg tablet 80 mg PO DAILY Qty: 90 3RF metformin 1,000 mg tablet 1,000 mg PO BID Qty: 180 3RF tamsulosin 0.4 mg capsule 0.4 mg PO QPM Qty: 90 3RF dutasteride [Avodart] 0.5 mg capsule 0.5 mg PO DAILY Qty: 90 3RF lisinopril 10 mg tablet 10 mg PO DAILY Qty: 90 3RF sertraline 100 mg tablet 100 mg PO BID Qty: 180 3RF Rx Instructions: CONFIRMED W/ PT ON 08/25 THAT HE TAKES 100MG BID. acetaminophen 500 mg tablet 1,000 mg PO Q8H PRN (Reason: Pain) Patient Comments: CONFIRMED W/ PT [facility] [place] DC SUMMARY 08/26/23. TAKING PRN. clopidogrel 75 mg tablet 75 mg PO DAILY Qty: 90 3RF mecobalamin (vitamin B12) 1,000 mcg tablet,chewable 1,000 mcg PO DAILY Qty: 30 0RF (DME) blood-glucose meter [OneTouch Verio Meter] Misc See Rx Instructions .Route Rx Instructions: check BS 1x daily lidocaine 4 % adhesive patch,medicated 1 patch topical DAILY PRN (Reason: pain) Qty: 5 0RF Rx Instructions: leave on most painful area for up to 12 hrs. USING 4% PATCH DAILY-OTC. CONFIRMED 08/26/23 W/ PT. Referrals Referrals: Marcio Abarca MD [Primary Care Provider] - Discharge Problem: Syncope Qualifiers: Syncope type: unspecified Qualified Code(s): R55 - Syncope and collapse
[2024-02-26 15:33] LABS: Appearance Urine Clear (Clear); Bilirubin Urine Negative (Negative); Blood Urine Negative (Negative); Color Urine Yellow; Glucose Urine UA 1+ (Negative); Ketones Urine Negative (Negative); Leukocyte Esterase Urine Negative (Negative); Nitrite Urine Negative (Negative); Protein Urine Negative (Negative); Specific Gravity Urine 1.043 (1.000-1.030); Urobilinogen Urine Negative (Negative)
[2024-02-26] MEDS ORDERED: GLUCOSE 40% GEL 15 GM TUBE PO PRN (16:11)
[2024-02-26] MEDS ORDERED: GLUCOSE 10 TAB/TUBE PO PRN (16:11)
[2024-02-26] MEDS ORDERED: DEXTROSE 50% 50 ML SYRINGE IV PRN (16:11)
[2024-02-26] MEDS ORDERED: GLUCAGON FOR INJ 1 MG VIAL SQ PRN (16:11)
[2024-02-26] MEDS ORDERED: CARBOHYDRATES FOR HYPOGLYCEMIA PO PRN (16:11)
[2024-02-26] MEDS ORDERED: ONDANSETRON INJ 2 MG/ML 2 ML VIAL IV PRN (16:11)
[2024-02-26] MEDS ORDERED: ACETAMINOPHEN 325 MG TAB PO PRN (16:11)
[2024-02-26] MEDS: INSULIN ASPART PER UNIT CHARGE SC SCH (17:58)
--- NOTE | 2024-02-26 20:37 | XCELERA ---
[id number]
[2024-02-26] MEDS: TAMSULOSIN HCL 0.4 MG CAP PO SCH (20:59)
[2024-02-26] MEDS: SERTRALINE HCL 100 MG TABLET PO SCH (20:59)
[2024-02-27 04:09] VITALS: O2SAT 97
[2024-02-27 06:36] LABS: Hematocrit (blood only) 38.9 % (42.0-52.0); Hemoglobin 13.3 g/dl (14.0-18.0); Mean Corpuscular Hemoglobin 30.4 pg (25.0-34.0); Mean Corpuscular Hgb Conc 34.2 g/dL (32.0-36.0); Mean Corpuscular Volume 88.8 fL (80.0-100.0); Platelet Count 126 K/uL (130-400); RDW Coefficient of Variation 13.6 % (11.5-14.5); RDW Standard Deviation 44.9 fL (36.4-46.3); Red Blood Count 4.38 M/uL (4.70-6.10); White Blood Count 4.69 K/ul (4.8-10.8)
[2024-02-27 07:02] LABS: BUN Creatinine Ratio 15.9 (10-20); Calcium 9.3 mg/dl (8.6-10.3); Creatinine Clr Calc Pharmacy 84.4 ml/min; Potassium 4.5 mmol/L (3.5-5.1)
[2024-02-27 07:08] LABS: Troponin I High Sensitivity 3.6 pg/ml (0-20)
[2024-02-27 07:18] LABS: Thyroid Stimulating Hormone 3.165 uIu/ml (0.300-4.500)
[2024-02-27 07:31] LABS: Estimated Average Glucose 137 mg/dl; Hemoglobin A1C 6.4 % (4.5-5.6)
[2024-02-27] MEDS: CLOPIDOGREL BISULFATE 75 MG TAB PO SCH (08:35)
[2024-02-27] MEDS: ATORVASTATIN 40 MG TAB PO SCH (08:35)
[2024-02-27 11:37] VITALS: BP 143/78; PULSE 68; TEMP 98.2
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
== END 2024-02-27 11:58 | disposition home or self-care (01) | DRG 69 ==
LOC: ED 11:33 → SUATTDRO 13:45 → 2N 13:45
DX: N40.0 Benign prostatic hyperplasia without lower urinary tract symptoms; Z83.3 Family history of diabetes mellitus; G45.9 Transient cerebral ischemic attack, unspecified; E11.9 Type 2 diabetes mellitus without complications; Z86.73 Personal history of transient ischemic attack (TIA), and cerebral infarction without residual deficits; R26.9 Unspecified abnormalities of gait and mobility; F39 Unspecified mood [affective] disorder; I10 Essential (primary) hypertension; Z88.8 Allergy status to other drugs, medicaments and biological substances; E78.5 Hyperlipidemia, unspecified; R47.81 Slurred speech; Z79.84 Long term (current) use of oral hypoglycemic drugs; Z79.02 Long term (current) use of antithrombotics/antiplatelets